=== PATIENT | female | born 1995 | race Caucasian/White ===

== ENCOUNTER → 2025-04-10 | Outpatient (CLI) | payer BC, SELFPAY ==
--- NOTE | 2025-04-10 09:30 | XR_ITS ---
Examination: MRI lumbar spine without contrast Date and time of exam: April 10, 2025 1020 hours INDICATIONS: Back pain radiating to the legs months Technique: Multiple MRI axial and sagittal sections lumbar spine. Sagittal T2-weighted images, TR 3500, TE 118 T1 weighted transverse sections, TR 688 T8.5, T2-weighted sagittal sections T1 weighted sagittal sections TR 621, TE 30 T2 axial sections, TR 4, 190, TE 84. Findings: Adequate alignment lumbar vertebral bodies No lumbar fracture Normal marrow signal lumbar vertebral bodies No lumbar disc desiccation Axial images demonstrate no focal lumbar disc protrusion IMPRESSION: No focal lumbar disc protrusion
== END | disposition home or self-care (01) ==
PROVIDERS: PCP Family Medicine; Referring Provider Family Medicine; Visit Provider Family Medicine
DX: M51.362 Other intervertebral disc degeneration, lumbar region with discogenic back pain and lower extremity pain (principal)
CPT/HCPCS: 72148

== ENCOUNTER 2025-08-29 15:37 | Emergency (ER) | payer BC, SELFPAY ==
[2025-08-29 15:38] VITALS: BMI 29.1
[2025-08-29 16:00] VITALS: BP 115/81; PULSE 78; RESP 16; TEMP 36.7; O2SAT 99
--- NOTE | 2025-08-29 16:11 | XR_ITS ---
Examination: Pelvic ultrasound, transabdominal, complete Technique: Transabdominal ultrasound of the pelvis performed using grayscale imaging Date and time of exam: August 29, 2025, 1626 hrs. Indications: Bilateral pelvic pain beginning one week ago, history endometriosis, uterine ablation 2018 Findings: Uterus 7.1 cm, endometrial stripe 0.5 cm No uterine mass or intrauterine gestation Right ovary 2.7 cm arterial flow Left ovary 4.2 cm arterial flow, 21 mm cyst Impression: No uterine mass or intrauterine gestation Left ovarian simple cyst 21 x 19 x 20 mm
--- NOTE | 2025-08-29 16:12 | PD.EDRME ---
Rapid Medical Screening Exam RME Arrival date/time: 08/29/25 15:37 30-year-old female with a history of endometriosis presents to the emergency room with a chief complaint of bilateral lower pelvic pain x 2 days I have greeted and performed a focused initial assessment of this patient. A comprehensive ED assessment and evaluation of the patient, analysis of all test results, and completion of the medical decision making process will be conducted by additional ED providers. Chief Complaint: Abdominal Pain Vital signs: Vital Signs Temperature 98.1 F 08/29/25 16:00 Pulse Rate 78 08/29/25 16:00 Respiratory Rate 16 08/29/25 16:00 Blood Pressure 115/81 08/29/25 16:00 Pulse Oximetry (%) 99 08/29/25 16:00 Oxygen Delivery Method Room Air 08/29/25 16:00 Vital signs reviewed by provider: Yes
[2025-08-29 16:32] LABS: Basophils # (Auto) 0.1 Thou/mm3 (0.0-0.2); Basophils % (Auto) 1 % (0-2.5); Eosinophils # (Auto) 0.2 Thou/mm3 (0.0-0.5); Eosinophils % (Auto) 1 % (0-10); Hematocrit 43.3 % (36.0-46.0); Hemoglobin 14.5 g/dL (12.0-16.0); Immature Granulocytes Auto 0.03 Thou/mm3 (0.00-0.00); Lymphocytes # (Auto) 3.7 Thou/mm3 (1.0-4.8); Lymphocytes % (Auto) 28 % (10-50); Mean Corpuscular HGB Conc 33.5 g/dl (31.0-37.0); Mean Corpuscular Hemoglobin 29.2 pg (25.0-35.0); Mean Corpuscular Volume 87 fL (80-100); Monocytes # (Auto) 0.5 Thou/mm3 (0.0-0.8); Monocytes % (Auto) 4 % (0-12); Neutrophils # (Auto) 8.4 Thou/mm3 (1.8-7.7); Neutrophils % (Auto) 66 % (37-80); Nucleated Red Blood Cell # 0.00 Thou/mm3 (0.00-0.00); Nucleated Red Blood Cell % 0 /100 WBC (0); Platelet Count 322 Thou/mm3 (140-440); RDW Standard Deviation 40.0 fL (36.4-46.3); Red Blood Count 4.97 Miln/mm3 (4.00-5.20); White Blood Count 12.9 Thou/mm3 (3.6-11.0)
[2025-08-29 17:00] LABS: Alanine Aminotransferase 8 U/L (10-49); Albumin, Serum 4.6 gm/dL (3.5-5.0); Albumin/Globulin Ratio 1.8 (1.2-2.2); Alkaline Phosphatase 54 U/L (46-116); Anion Gap 8 (7-16); Aspartate Amino Transferase 16 U/L (0-34); BUN/Creatinine Ratio 8 Ratio (12-20); Bilirubin,Total 0.4 mg/dL (0.3-1.2); Blood Urea Nitrogen 8 mg/dL (9-23); Calcium 10.4 mg/dL (8.3-10.6); Calcium (Corrected) 10.4 mg/dL (8.5-10.1); Carbon Dioxide 26.1 mMol/L (20.0-31.0); Chloride 104 mMol/L (98-107); Creatinine (Component) 1.0 mg/dL (0.6-1.3); Estimated Creatinine Clearance 84.9 mL/min (>60); Globulin 2.5 gm/dL (2.3-3.5); Glucose 176 mg/dL (74-106); Lipase 26 U/L (12-53); Osmolality,Calculated 277 (275-295); Potassium 4.4 mMol/L (3.4-5.1); Sodium 138 mMol/L (136-145); Total Protein 7.1 gm/dL (5.7-8.2); eGFR > 60 See Note
[2025-08-29 17:00] LABS: Collection Type, Urine Clean Catch
[2025-08-29 17:05] LABS: HCG Qualitative,Urine Negative
[2025-08-29 17:13] LABS: Bacteria,Urine Rare; Bilirubin,Urine Negative (Negative); Blood,Urine Trace (Negative); Clarity,Urine Clear (Clear/Hazy); Color,Urine Lt-Yellow (Lt Yel-Yel); Glucose, Urine Negative (Negative); Ketones,Urine 1+ (Negative); Leukocyte Esterase,Urine Negative (Negative); Nitrite,Urine Negative (Negative); PH,Urine 5.5 (5.0-7.0); Protein,Urine Negative (Neg - Trace); RBC,Urine 1 /hpf (0-3); Specific Gravity,Urine 1.021 (1.001-1.035); Squamous Epithelial Cell,Urine 2 /hpf (0-5); Urobilinogen,Urine Negative mg/dL (0.0-1.0); WBC,Urine 1 /hpf (0-5)
--- NOTE | 2025-08-29 18:36 | PD.EDADULT ---
ED General RME/HPI General Chief complaint: Abdominal Pain Stated complaint: BILAT OVARIAN PAIN/LOWER ABD PAIN Time Seen by Provider: 08/29/25 18:31 Arrival date/time: 08/29/25 15:37 CC: Low lateral abdominal pain HPI ongoing for the past week left sides pinching in nature not typical, 30 episodes very short lasting in the past half day. Right side is a dull ache that is consistent with her endometriosis it has been on for several days. Patient denies nausea vomiting headache shortness of breath or difficulty breathing. Denies any vaginal bleeding vaginal discharge painful urination or bloody urination. Patient states she has a history of fibromyalgia and is taking tramadol as needed. RME / HPI RME / HPI narrative: 08/29/25 15:37 30-year-old female with a history of endometriosis presents to the emergency room with a chief complaint of bilateral lower pelvic pain x 2 days I have greeted and performed a focused initial assessment of this patient. A comprehensive ED assessment and evaluation of the patient, analysis of all test results, and completion of the medical decision making process will be conducted by additional ED providers. Related Data Previous Rx's ?Medication ?Instructions ?Recorded guaifenesin 400 mg tablet 400 mg PO Q6H #20 tabs 12/13/19 ibuprofen 600 mg tablet 600 mg PO Q6H #30 tabs 12/13/19 pseudoephedrine HCl 60 mg tablet 60 mg PO Q6H PRN nasal congestion 12/13/19 #20 tabs Allergies Allergy/AdvReac Type Severity Reaction Status Date / Time No Known Allergies Allergy Verified 08/29/25 15:39 Review of Systems Review of Systems Narrative Review of Systems: GEN: No fever, no chills, no weight loss EYES: No discharge, no visual changes, no pain HEENT: No ear pain, no congestion, no sore throat PULM: No shortness of breath, no cough, no congestion CV: No chest pain, no dyspnea on exertion, no palpitations GI: No nausea, no vomiting, no diarrhea, no pain, no constipation : No frequency, no urgency, no dysuria MUSC/SKEL: No joint pain, no back pain SKIN: No rash PSYCH: No hallucinations, no depression HEME/LYMPH: No easy bleeding or bruising tendencies NEURO: No weakness, no headache Past Medical History Past Medical History NEUROLOGIC: Positive Neurological Disorders and Migraine (TAKES OTC); Negative Seizures CARDIAC: Negative Cardiac Disorders or Congestive Heart Failure RESPIRATORY: Positive Asthma (LAST USE OF INHALER FOR ASTHMA 2014); Negative Chronic Obstructive Pulmonary Disease (COPD) GASTROINTESTINAL: Negative Gastrointestinal Disorders GENITOURINARY: Negative Genitourinary Disorders or Renal Disease REPRODUCTIVE: Positive Previous Pregnancies (X2) MUSCULOSKELETAL: Positive Musculoskeletal Disorders ENDOCRINE: Negative Endocrine Disorders, Diabetes Mellitus Type 1 or Diabetes Mellitus Type 2 HEMATOLOGIC: Positive Blood Disorders and Anemia (NO MED) PSYCHO/SOCIAL: Positive Post Traumatic Stress Disorder (2010 HAD SEXUAL ABUSE STATES SELF MEDICATE AT THIS TIME) OTHER HISTORY: Positive Autoimmune Disease (MOTHER (EPILEPSY), MOTHER,FATHER,BROTHER,SISTER (ANEMIA)) and Chicken Pox; Negative Hospitalization, Shingles, Falls, Blood Transfusions, Anesthesia Reactions, Chemotherapy, Radiation Therapy or MRSA Family History FAMILY HISTORY: Positive Family Psychiatric Problems (MOTHER (DEPRESSION,ANXIETY)), Family Respiratory Disorders (FATHER (ASTHMA)), Family Cardiac Disorders (MOTHER (HTN)), Family Cancer (MOTHER (OVARIAN)) and Family Surgery (MOTHER); Negative Family Gastrointestinal Problems or Family Anesthesia Reaction Social History SMOKING STATUS: Current every day smoker ED Exam Narrative Physical exam: [General: Not in any acute distress Head normocephalic HEENT: Within acceptable limits Neck is supple nontender Chest equal chest rise nontender to palpation Respiratory: Clear to auscultation no wheezes crackles or rubs CV: Rate rhythm is regular no murmurs rubs or clicks Abdomen is distended secondary to body habitus soft nontender no masses positive bowel sounds all 4 quadrants Back: No CVA tenderness no spinous process tenderness from cervical spine thoracic and lumbar spine Skin: Intact no petechiae rash induration ulceration or crepitus Extremities: Moving all extremity against resistance cap refill less than 2 seconds neurosensory intact Neuro: Awake alert oriented x3 Glascow coma 15 no focal deficits] Course Quality Measures none Orders Category Date Time Status US pelvic complete Stat Exams 08/29/25 16:11 Completed CBC Stat Lab 08/29/25 16:19 Completed CMP [Comprehensive Metabolic Panel] Stat Lab 08/29/25 16:19 Completed HCG Qualitative,Urine Stat Lab 08/29/25 16:43 Completed Lipase Stat Lab 08/29/25 16:19 Completed UA [Urinalysis] Stat Lab 08/29/25 16:43 Completed Urine Culture Stat Lab 08/29/25 16:43 Received Vital Signs Vital signs: Vital Signs Temperature 98.1 F 08/29/25 16:00 Pulse Rate 78 08/29/25 16:00 Respiratory Rate 16 08/29/25 16:00 Blood Pressure 115/81 08/29/25 16:00 Pulse Oximetry (%) 99 08/29/25 16:00 Oxygen Delivery Method Room Air 08/29/25 16:00 Discharge Plan Plan Patient Disposition: HOME (Self Care) Patient condition on transfer: Stable Prescriptions/Referrals Prescriptions/Med Rec: No Action ibuprofen 600 mg tablet 600 mg PO Q6H Qty: 30 0RF pseudoephedrine HCl 60 mg tablet 60 mg PO Q6H PRN (Reason: nasal congestion) Qty: 20 0RF guaifenesin 400 mg tablet 400 mg PO Q6H Qty: 20 0RF Referrals: No Primary/Family,Physician [Primary Care Provider] - In 1 week Problem List Clinical Impression: Abdominal pain, left lower quadrant, Ovarian cyst Patient/Caregiver Discharge Instructions Education Materials: ED Ovarian Cyst Print Language: Setswana Stand Alone Forms: [employer] Award Info., Work/School Release, Patient Portal Info Letter PA/ELEVATOR DISPATCHER Supervising Physician PA/ELEVATOR DISPATCHER Supervising Physician: Minesh Carpenter ENP MDM Clinical Information Provided by: patient Medical Records reviewed [facility] Meds/Rx considered, not ordered None Labs/Rad/Tests considered, not ordered None Chronic Illness/Social Conditions Explain: Endometriosis EKG EKG not done Labs Labs: interpreted by [facility] Lab(s) Interpretation(s): CBC shows a mild leukocytosis of 12.9 no anemia thrombocytopenia CMP shows no significant electrolyte imbalances glucose mildly elevated at 176. No other transaminitis or T. bili elevation. Urine UA is negative for UTI is negative Imaging Imaging Interpretation(s): Ultrasound shows a simple ovarian cyst left side otherwise unremarkable. Diagnosis Differential Diagnosis ED Complaint MDM: Ovarian cyst fibroid.
[2025-08-29 18:38] VITALS: BP 116/88; PULSE 81; RESP 18; TEMP 37.3; O2SAT 99
== END 2025-08-29 18:56 | disposition home or self-care (01) ==
PROVIDERS: Nurse Practitioner Family; Emergency Provider Emergency Medicine
DX: N83.292 Other ovarian cyst, left side (principal)
CPT/HCPCS: 36415; 76856; 80053; 81001; 81025; 83690; 85025; 87086; 99283